=== PATIENT | female | born 1985 | race Caucasian/White ===

== ENCOUNTER 2023-03-10 10:32 | Inpatient (IN) | payer OTHER ==
[~2023-03-10] VITALS: Ht 157.5 cm; Wt 70.8 kg
[2023-03-10 10:40] VITALS: BP 138/84; PULSE 208; RESP 24; TEMP 98; O2SAT 99
[2023-03-10] MEDS ORDERED: NACL 0.9% 1,000 ML IV ONE (10:55)
[2023-03-10] MEDS ORDERED: METOPROLOL 5 MG/5 ML VIAL IVP ONE (11:10)
[2023-03-10 11:34] LABS: BASOPHILS % (AUTO) 0.1 % (0.0-2.0); EOSINOPHILS % (AUTO) 0.6 % (0.0-4.0); HEMATOCRIT 32.9 % (36-48); HEMOGLOBIN 10.8 g/dL (12.0-16.0); LYMPHOCYTES # (AUTO) 2.3 K/uL (2.5-16.5); LYMPHOCYTES % (AUTO) 26.8 % (20.5-51.1); MEAN CORPUSCULAR HEMOGLOBIN 23 pg (27-31); MEAN CORPUSCULAR HGB CONC 33 g/dL (33-37); MEAN CORPUSCULAR VOLUME 68.6 fL (80-94); MONOCYTES # (AUTO) 0.6 K/uL (0.8-1.0); MONOCYTES % (AUTO) 6.5 % (1.7-9.3); NEUTROPHILS # (AUTO) 5.6 K/uL (1.8-7.7); PLATELET COUNT (AUTO) 267 K/uL (140-450); RED BLOOD CELL COUNT(AUTO) 4.79 MIL/uL (4.20-5.40); RED CELL DISTRIBUTION WIDTH 15.3 % (11.6-13.7); WHITE BLOOD COUNT (AUTO) 8.5 K/uL (4.8-10.8)
[2023-03-10 11:48] LABS: INR 0.9 (0.8-1.2); PARTIAL THROMBOPLASTIN TIME 22.3 secs (22-35.6); PROTHROMBIN TIME 9.4 secs (10.8-13.4)
[2023-03-10 12:00] LABS: THYROID STIMULATING HORMONE < 0.01 uIU/mL (0.34-3.74)
[2023-03-10 12:07] LABS: ALBUMIN 2.9 g/dL (3.4-5.0); ANION GAP 14.2 (8-16); CALCIUM 8.4 mg/dL (8.5-10.1); CARBON DIOXIDE 22.2 mmol/L (21-32); CREATININE 0.4 mg/dL (0.6-1.3); POTASSIUM 3.4 mmol/L (3.5-5.1); TOTAL BILIRUBIN 0.4 mg/dL (0.0-1.0); TOTAL PROTEIN, SERUM 6.4 g/dL (6.4-8.2)
[2023-03-10] MEDS ORDERED: ASCO500T95 PO (14:55)
[2023-03-10] MEDS ORDERED: FERR-252 PO (14:56)
[2023-03-10] MEDS ORDERED: PREN-543 PO (14:57)
[2023-03-10] MEDS ORDERED: LORazepam 2 MG/ML VIAL IVP PRN (18:50)
[2023-03-10] MEDS ORDERED: HYDROcodone/APAP 5/325 MG 1 TAB TAB PO PRN (18:50)
[2023-03-10] MEDS ORDERED: ACETAMINOPHEN 325 MG TAB PO PRN (18:50)
[2023-03-10] MEDS ORDERED: ONDANSETRON 4 MG/2 ML VIAL IVP PRN (18:50)
[2023-03-10 19:30] VITALS: BP 126/58; PULSE 108; PULSE 114; PULSE 98; RESP 18; TEMP 97.9; O2SAT 98; O2SAT 99
[2023-03-10 20:00] VITALS: PULSE 114
[2023-03-11] VITALS: BP 125/71; PULSE 159; PULSE 161; RESP 18; TEMP 97.5; O2SAT 99
[2023-03-11] MEDS ORDERED: METOPROLOL 25 MG TAB PO ONE (00:10)
[2023-03-11 04:00] VITALS: BP 128/67; PULSE 104; PULSE 99; RESP 18; TEMP 97.1; O2SAT 99
[2023-03-11 05:54] LABS: BASOPHILS % (AUTO) 0.1 % (0.0-2.0); EOSINOPHILS % (AUTO) 0.4 % (0.0-4.0); HEMATOCRIT 29.3 % (36-48); HEMOGLOBIN 9.7 g/dL (12.0-16.0); LYMPHOCYTES # (AUTO) 1.8 K/uL (2.5-16.5); MEAN CORPUSCULAR HEMOGLOBIN 23 pg (27-31); MEAN CORPUSCULAR HGB CONC 33 g/dL (33-37); MEAN CORPUSCULAR VOLUME 68.7 fL (80-94); MONOCYTES # (AUTO) 0.4 K/uL (0.8-1.0); NEUTROPHILS # (AUTO) 6.6 K/uL (1.8-7.7); NEUTROPHILS % (AUTO) 74.5 % (42.2-75.2); PLATELET COUNT (AUTO) 225 K/uL (140-450); RED BLOOD CELL COUNT(AUTO) 4.26 MIL/uL (4.20-5.40); RED CELL DISTRIBUTION WIDTH 15.3 % (11.6-13.7); WHITE BLOOD COUNT (AUTO) 8.9 K/uL (4.8-10.8)
[2023-03-11 07:51] LABS: ANION GAP 14.1 (8-16); CALCIUM 8.5 mg/dL (8.5-10.1); CARBON DIOXIDE 22.1 mmol/L (21-32); CREATININE 0.3 mg/dL (0.6-1.3); POTASSIUM 4.2 mmol/L (3.5-5.1)
[2023-03-11 08:00] VITALS: BP 133/68; PULSE 117; PULSE 93; RESP 18; TEMP 97; O2SAT 97; O2SAT 99
[2023-03-11] MEDS ORDERED: [UNRECOGNIZED DRUG - REMARK] PO SCH (09:00)
[2023-03-11] MEDS: METOPROLOL 25 MG TAB PO SCH ×2 (09:20→21:09)
[2023-03-11] MEDS: ASCORBIC ACID 500 MG TAB PO SCH (09:21)
[2023-03-11] MEDS: FERROUS SULFATE 325 MG TABEC PO SCH (09:21)
[2023-03-11 12:00] VITALS: BP 137/71; PULSE 94; RESP 18; TEMP 97.3; O2SAT 94
[2023-03-11 16:00] VITALS: BP 131/51; PULSE 102; PULSE 104; RESP 18; TEMP 98; O2SAT 98
[2023-03-11 20:00] VITALS: BP 127/76; PULSE 110; PULSE 117; RESP 18; TEMP 98.3; O2SAT 97; O2SAT 99
[2023-03-12] VITALS: BP 121/69; PULSE 101; PULSE 95; RESP 18; TEMP 98; O2SAT 97
[2023-03-12 04:00] VITALS: BP 118/64; PULSE 90; PULSE 94; RESP 18; TEMP 97.2; O2SAT 98
[2023-03-12 06:21] LABS: BASOPHILS % (AUTO) 0.1 % (0.0-2.0); EOSINOPHILS % (AUTO) 0.6 % (0.0-4.0); HEMATOCRIT 29.1 % (36-48); HEMOGLOBIN 9.7 g/dL (12.0-16.0); LYMPHOCYTES % (AUTO) 27.1 % (20.5-51.1); MEAN CORPUSCULAR HEMOGLOBIN 23 pg (27-31); MEAN CORPUSCULAR HGB CONC 33 g/dL (33-37); MEAN CORPUSCULAR VOLUME 68.4 fL (80-94); MONOCYTES # (AUTO) 0.4 K/uL (0.8-1.0); MONOCYTES % (AUTO) 5.7 % (1.7-9.3); NEUTROPHILS # (AUTO) 4.8 K/uL (1.8-7.7); NEUTROPHILS % (AUTO) 66.5 % (42.2-75.2); PLATELET COUNT (AUTO) 230 K/uL (140-450); RED BLOOD CELL COUNT(AUTO) 4.26 MIL/uL (4.20-5.40); RED CELL DISTRIBUTION WIDTH 15.7 % (11.6-13.7); WHITE BLOOD COUNT (AUTO) 7.3 K/uL (4.8-10.8)
[2023-03-12 06:54] LABS: ANION GAP 12.9 (8-16); CALCIUM 8.2 mg/dL (8.5-10.1); CREATININE 0.3 mg/dL (0.6-1.3); POTASSIUM 3.9 mmol/L (3.5-5.1)
[2023-03-12 08:00] VITALS: BP 121/51; PULSE 106; PULSE 91; RESP 18; TEMP 98.4; O2SAT 95; O2SAT 98
[2023-03-12] MEDS ORDERED: MULTIVIT/MIN/CA/FE/FA 1 TAB PO SCH (09:00)
[2023-03-12] MEDS: ASCORBIC ACID 500 MG TAB PO SCH (09:11)
[2023-03-12] MEDS: METOPROLOL 25 MG TAB PO SCH (09:11)
[2023-03-12] MEDS: FERROUS SULFATE 325 MG TABEC PO SCH (09:12)
[2023-03-12] MEDS ORDERED: METO25TA PO (09:57)
== END 2023-03-12 11:20 | disposition home or self-care (01) | DRG 566 ==
LOC: MED 10:32 → MTU 14:47
PROVIDERS: ADMIT Preventive Medicine Preventive Medicine/Occupational Environmental Medicine; ATTEND Preventive Medicine Preventive Medicine/Occupational Environmental Medicine
DX: O99.412 Diseases of the circulatory system complicating pregnancy, second trimester (principal); E05.91 Thyrotoxicosis, unspecified with thyrotoxic crisis or storm; I47.10 Supraventricular tachycardia, unspecified; E83.51 Hypocalcemia; O99.282 Endocrine, nutritional and metabolic diseases complicating pregnancy, second trimester; O99.012 Anemia complicating pregnancy, second trimester; O21.2 Late vomiting of pregnancy; D64.9 Anemia, unspecified; Z90.49 Acquired absence of other specified parts of digestive tract; Z87.891 Personal history of nicotine dependence; Z3A.26 26 weeks gestation of pregnancy; O25.12 Malnutrition in pregnancy, second trimester
CPT/HCPCS: 36415; 71045; 76536; 76805; 80048; 80053; 83880; 84439; 84443; 84479; 84484; 85025; 85610; 85730; 87081; 93005; 96374; 99291; J3490; Q0092

== ENCOUNTER 2023-03-14 05:49 | Emergency (ER) | payer OTHER ==
[~2023-03-14] VITALS: Ht 157.5 cm; Wt 70.8 kg
[~2023-03-14 05:49] MED LIST: ASCO500T95 PO; FERR-252 PO; METO25TA PO; PREN-543 PO
[2023-03-14 05:52] VITALS: BP 134/68; PULSE 112; RESP 18; TEMP 97.6; O2SAT 97
[2023-03-14] MEDS ORDERED: NACL 0.9% 1,000 ML IV ONE (06:20)
[2023-03-14 06:57] LABS: BASOPHILS % (AUTO) 0.7 % (0.0-2.0); EOSINOPHILS % (AUTO) 0.5 % (0.0-4.0); HEMOGLOBIN 9.7 g/dL (12.0-16.0); LYMPHOCYTES # (AUTO) 1.9 K/uL (2.5-16.5); MEAN CORPUSCULAR HEMOGLOBIN 23 pg (27-31); MEAN CORPUSCULAR HGB CONC 33 g/dL (33-37); MEAN CORPUSCULAR VOLUME 68.5 fL (80-94); MONOCYTES # (AUTO) 0.5 K/uL (0.8-1.0); MONOCYTES % (AUTO) 6.9 % (1.7-9.3); NEUTROPHILS # (AUTO) 4.6 K/uL (1.8-7.7); NEUTROPHILS % (AUTO) 64.9 % (42.2-75.2); PLATELET COUNT (AUTO) 223 K/uL (140-450); RED BLOOD CELL COUNT(AUTO) 4.23 MIL/uL (4.20-5.40); RED CELL DISTRIBUTION WIDTH 15.5 % (11.6-13.7); WHITE BLOOD COUNT (AUTO) 7.2 K/uL (4.8-10.8)
[2023-03-14 07:19] LABS: ANION GAP 13.8 (8-16); CALCIUM 8.3 mg/dL (8.5-10.1); CARBON DIOXIDE 25.1 mmol/L (21-32); CHLORIDE 103 mmol/L (98-107); CREATININE 0.3 mg/dL (0.6-1.3); GFR ARICAN-AMERICAN 317 mL/min (>90); GFR NON ARICAN-AMERICAN 262 mL/min (>90); GLUCOSE 91 mg/dL (74-106); POTASSIUM 3.9 mmol/L (3.5-5.1); SODIUM SERUM 138 mmol/L (136-145); UREA NITROGEN, BLOOD 9 mg/dL (7-18)
[2023-03-14 08:06] LABS: APPEARANCE,URINE CLEAR (CLEAR); BILIRUBIN,URINE NEGATIVE (NEGATIVE); BLOOD, URINE TRACE-I (NEGATIVE); COLOR,URINE YELLOW (YELLOW); LEUKOCYTE ESTERASE ,URINE NEGATIVE (NEGATIVE); NITRITE, URINE NEGATIVE (NEGATIVE); PROTEIN,URINE NEGATIVE (NEGATIVE); UGLUCOSE NEGATIVE (NEGATIVE); UROBILINOGEN,URINE 0.2 EU/dL (0.2 - 1)
[2023-03-14 08:22] LABS: ALANINE AMINOTRANSFERASE 22 U/L (12-78); ALBUMIN 2.6 g/dL (3.4-5.0); ALKALINE PHOSPHATASE 70 U/L (50-136); ASPARTATE AMINOTRANSFERASE 13 U/L (15-37); FREE T4 (FREE THYROXINE) 7.56 ng/dL (0.76-1.46); TOTAL BILIRUBIN 0.1 mg/dL (0.0-1.0); TOTAL PROTEIN, SERUM 5.6 g/dL (6.4-8.2)
[2023-03-14 08:23] LABS: THYROID STIMULATING HORMONE < 0.01 uIU/mL (0.34-3.74)
[2023-03-14] MEDS ORDERED: METOPROLOL 25 MG TAB PO ONE (08:35)
[2023-03-14 10:21] VITALS: BP 107/45; PULSE 91; RESP 20; TEMP 98.2; O2SAT 97
== END 2023-03-14 10:21 | disposition home or self-care (01) ==
LOC: MED 05:49
DX: E05.90 Thyrotoxicosis, unspecified without thyrotoxic crisis or storm (principal); R00.0 Tachycardia, unspecified; R00.2 Palpitations; Z88.2 Allergy status to sulfonamides; Z79.899 Other long term (current) drug therapy
CPT/HCPCS: 36415; 80053; 81003; 84439; 84443; 85025; 93005; 96360; 99284; J7030

== ENCOUNTER 2023-04-01 02:33 | Observation (INO) | payer OTHER ==
[~2023-04-01] VITALS: Ht 157.5 cm; Wt 74.8 kg
[2023-04-01 02:43] VITALS: BP 128/60; PULSE 111; RESP 18; TEMP 98.4
[2023-04-01] MEDS ORDERED: LACTATED RINGERS 1,000 ML IV SCH ×2 (04:40)
== END 2023-04-01 08:40 | disposition home or self-care (01) ==
LOC: MLD 02:33
PROVIDERS: ADMIT Obstetrics & Gynecology; ATTEND Obstetrics & Gynecology
DX: O26.892 Other specified pregnancy related conditions, second trimester (principal); R10.9 Unspecified abdominal pain; Z20.822 Contact with and (suspected) exposure to COVID-19; Z3A.21 21 weeks gestation of pregnancy
CPT/HCPCS: 96360; 96361; G0378

== ENCOUNTER 2023-04-09 17:00 | Inpatient (IN) | payer OTHER ==
[~2023-04-09] VITALS: Ht 157.5 cm; Wt 73.5 kg
[2023-04-09] MEDS ORDERED: PRED1TAB2 PO (17:36)
[2023-04-09] MEDS ORDERED: AZIT250T4 PO (17:36)
[2023-04-09] MEDS ORDERED: AMPICILLIN 2,000 MG in NACL 0.9% 100 ML IV SCH (18:15)
[2023-04-09] MEDS: LACTATED RINGERS 1,000 ML IV SCH (18:49)
[2023-04-09] MEDS: AZITHROMYCIN 1,000 MG in DEXTROSE 5% 500 ML IV SCH (18:51)
[2023-04-09 19:05] VITALS: BP 134/66; PULSE 114; RESP 19; TEMP 98.4
[2023-04-09 19:08] LABS: BASOPHILS % (AUTO) 0.1 % (0.0-2.0); EOSINOPHILS % (AUTO) 0.1 % (0.0-4.0); HEMATOCRIT 29.4 % (36-48); HEMOGLOBIN 9.6 g/dL (12.0-16.0); LYMPHOCYTES # (AUTO) 1.3 K/uL (2.5-16.5); LYMPHOCYTES % (AUTO) 8.1 % (20.5-51.1); MEAN CORPUSCULAR HEMOGLOBIN 22 pg (27-31); MEAN CORPUSCULAR HGB CONC 33 g/dL (33-37); MEAN CORPUSCULAR VOLUME 68.1 fL (80-94); MONOCYTES # (AUTO) 0.7 K/uL (0.8-1.0); MONOCYTES % (AUTO) 4.3 % (1.7-9.3); NEUTROPHILS # (AUTO) 13.7 K/uL (1.8-7.7); NEUTROPHILS % (AUTO) 87.4 % (42.2-75.2); PLATELET COUNT (AUTO) 264 K/uL (140-450); RED BLOOD CELL COUNT(AUTO) 4.32 MIL/uL (4.20-5.40); RED CELL DISTRIBUTION WIDTH 15.5 % (11.6-13.7); WHITE BLOOD COUNT (AUTO) 15.6 K/uL (4.8-10.8)
[2023-04-09 19:14] LABS: APPEARANCE,URINE CLEAR (CLEAR); BILIRUBIN,URINE NEGATIVE (NEGATIVE); BLOOD, URINE TRACE-I (NEGATIVE); COLOR,URINE YELLOW (YELLOW); LEUKOCYTE ESTERASE ,URINE 1+ (NEGATIVE); NITRITE, URINE NEGATIVE (NEGATIVE); PROTEIN,URINE NEGATIVE (NEGATIVE); UGLUCOSE NEGATIVE (NEGATIVE); UROBILINOGEN,URINE 0.2 EU/dL (0.2 - 1)
[2023-04-09 19:30] LABS: BACTERIA,URINE None Seen /HPF (None Seen); SQUAMOUS EPITHELIAL CELL,UR 0-3 (FEW) /LPF (0-3 (FEW))
[2023-04-09] MEDS: MAG SULF 20 GM/H2O PREMIX DRIP 500 ML IV SCH (19:33)
[2023-04-09] MEDS ORDERED: AMPICILLIN 1,000 MG in NACL 0.9% 50 ML IV SCH (20:00)
== END 2023-04-09 21:20 | disposition short-term general hospital (02) | DRG 566 ==
LOC: MLD 17:00 → OBSVTOIN 19:00
PROVIDERS: ADMIT Obstetrics & Gynecology; ATTEND Obstetrics & Gynecology
DX: O42.912 Preterm premature rupture of membranes, unspecified as to length of time between rupture and onset of labor, second trimester (principal); O75.3 Other infection during labor; O99.282 Endocrine, nutritional and metabolic diseases complicating pregnancy, second trimester; E05.90 Thyrotoxicosis, unspecified without thyrotoxic crisis or storm; Z20.822 Contact with and (suspected) exposure to COVID-19; Z3A.21 21 weeks gestation of pregnancy
CPT/HCPCS: 36415; 76805; 81001; 85025; 87086; J0456; J3475; J7060; Q0092

== ENCOUNTER 2023-04-30 19:22 | Inpatient (IN) | payer OTHER ==
[~2023-04-30] VITALS: Ht 157.5 cm; Wt 70.8 kg
[~2023-04-30 19:22] MED LIST changes: +AZIT250T4 PO; +PRED1TAB2 PO
[2023-04-30 19:45] VITALS: BP 155/70; PULSE 135; RESP 22; TEMP 102.7; O2SAT 96
[2023-04-30] MEDS ORDERED: ACETAMINOPHEN EXTRA STRENGTH 500 MG TAB PO ONE (19:50)
[2023-04-30] MEDS ORDERED: NACL 0.9% 2,000 ML IV SCH (20:10)
[2023-04-30 20:29] LABS: BASOPHILS # (AUTO) 0.1 K/uL (0.00-0.22); BASOPHILS % (AUTO) 0.5 % (0.0-2.0); EOSINOPHILS % (AUTO) 0.1 % (0.0-4.0); HEMOGLOBIN 9.7 g/dL (12.0-16.0); LYMPHOCYTES # (AUTO) 0.6 K/uL (2.5-16.5); LYMPHOCYTES % (AUTO) 5.9 % (20.5-51.1); MEAN CORPUSCULAR HEMOGLOBIN 23 pg (27-31); MEAN CORPUSCULAR HGB CONC 33 g/dL (33-37); MEAN CORPUSCULAR VOLUME 69.7 fL (80-94); MONOCYTES # (AUTO) 0.3 K/uL (0.8-1.0); MONOCYTES % (AUTO) 3.1 % (1.7-9.3); NEUTROPHILS # (AUTO) 9.8 K/uL (1.8-7.7); NEUTROPHILS % (AUTO) 90.4 % (42.2-75.2); PLATELET COUNT (AUTO) 394 K/uL (140-450); RED BLOOD CELL COUNT(AUTO) 4.16 MIL/uL (4.20-5.40); RED CELL DISTRIBUTION WIDTH 16.5 % (11.6-13.7); WHITE BLOOD COUNT (AUTO) 10.9 K/uL (4.8-10.8)
[2023-04-30 20:54] LABS: INR 0.9 (0.8-1.2); PARTIAL THROMBOPLASTIN TIME 25.5 secs (22-35.6); PROTHROMBIN TIME 9.5 secs (10.8-13.4)
[2023-04-30 20:56] LABS: ANION GAP 15.3 (8-16); CALCIUM 9.4 mg/dL (8.5-10.1); CARBON DIOXIDE 23.7 mmol/L (21-32); CREATININE 0.5 mg/dL (0.6-1.3)
[2023-04-30] MEDS ORDERED: cefTRIAXone 1,000 MG VIAL ONE (21:03)
[2023-04-30 21:05] LABS: ALANINE AMINOTRANSFERASE 30 U/L (12-78); ALBUMIN 2.7 g/dL (3.4-5.0); ALKALINE PHOSPHATASE 127 U/L (50-136); ASPARTATE AMINOTRANSFERASE 15 U/L (15-37); BILIRUBIN,DIRECT 0.1 mg/dL (0.0-0.3); TOTAL BILIRUBIN 0.3 mg/dL (0.0-1.0); TOTAL PROTEIN, SERUM 7.2 g/dL (6.4-8.2)
[2023-04-30 21:07] LABS: LACTIC ACID 1.1 mmol/L (0.4-2.0)
[2023-04-30 21:20] LABS: APPEARANCE,URINE CLEAR (CLEAR); BILIRUBIN,URINE NEGATIVE (NEGATIVE); BLOOD, URINE TRACE-I (NEGATIVE); COLOR,URINE YELLOW (YELLOW); LEUKOCYTE ESTERASE ,URINE NEGATIVE (NEGATIVE); NITRITE, URINE NEGATIVE (NEGATIVE); PROTEIN,URINE NEGATIVE (NEGATIVE); UGLUCOSE NEGATIVE (NEGATIVE); UROBILINOGEN,URINE 0.2 EU/dL (0.2 - 1)
[2023-04-30] MEDS ORDERED: NACL 0.9% 1,000 ML IV ONE (21:35)
[2023-04-30 21:43] LABS: BACTERIA,URINE None Seen /HPF (None Seen); MUCUS,URINE 1+ /LPF (None Seen); RBC,URINE 0-5 /HPF (0-5); SQUAMOUS EPITHELIAL CELL,UR 0-3 (FEW) /LPF (0-3 (FEW)); TRICHOMONAS,URINE None Seen /HPF (None Seen); WBC,URINE 0 /HPF (0-5); YEAST,URINE None Seen /HPF (None Seen)
[2023-04-30 23:16] LABS: FLU A ANTIGEN negative (NEGATIVE); FLU B ANTIGEN negative (NEGATIVE)
[2023-04-30] MEDS ORDERED: ONDANSETRON 4 MG/2 ML VIAL ONE (23:29)
[2023-04-30] MEDS ORDERED: MORPHINE SULFATE 4 MG/ML SYR ONE (23:30)
[2023-04-30] MEDS ORDERED: MORPHINE SULFATE 4 MG/ML SYR IVP ONE (23:35)
[2023-04-30] MEDS ORDERED: ONDANSETRON 4 MG/2 ML VIAL IVP ONE (23:35)
[2023-04-30] MEDS ORDERED: ALBUTEROL SULFATE/IPRATROPIU 3 ML SOL IH ONE (23:40)
[2023-05-01] VITALS (15 sets, daily range): BP systolic 92–142; BP diastolic 44–75; PULSE 84–136; RESP 16–24; TEMP 98.4–100.5; O2SAT 92–99
[2023-05-01] LABS: AMPHETAMINE, URINE NEGATIVE ng/ml (NEG <=1000); BARBITURATE, URINE NEGATIVE ng/ml (NEG <=200); BENZODIAZEPINE, URINE NEGATIVE ng/mL (NEG <=200); CANNABINOID, URINE NEGATIVE ng/mL (NEG <=50); COCAINE, URINE NEGATIVE ng/mL (NEG <=300); OPIATE, URINE NEGATIVE ng/mL (NEG <=2000); PHENCYCLIDINE SCREEN,URINE NEGATIVE ng/mL (NEG <=25)
[2023-05-01] MEDS ORDERED: MORPHINE SULFATE 4 MG/ML SYR ONE ×2 (02:08→06:13)
[2023-05-01] MEDS ORDERED: ACETAMINOPHEN EXTRA STRENGTH 500 MG TAB ONE (02:08)
[2023-05-01] MEDS ORDERED: MORPHINE SULFATE 4 MG/ML SYR IVP ONE (02:10)
[2023-05-01] MEDS ORDERED: ACETAMINOPHEN EXTRA STRENGTH 500 MG TAB PO ONE (02:10)
[2023-05-01] MEDS ORDERED: METOPROLOL 5 MG/5 ML VIAL IVP ONE (03:50)
[2023-05-01] MEDS ORDERED: METOPROLOL 5 MG/5 ML VIAL ONE (03:52)
[2023-05-01 04:38] LABS: THYROID STIMULATING HORMONE < 0.01 uIU/mL (0.34-3.74)
[2023-05-01] MEDS ORDERED: NACL 0.45% 1,000 ML IV SCH (05:55)
[2023-05-01] MEDS ORDERED: MORPHINE SULFATE 4 MG/ML SYR IVP STA (06:12)
[2023-05-01] MEDS ORDERED: OXYC5CAP26 PO (06:25)
[2023-05-01] MEDS ORDERED: IBUP-2213 PO (06:25)
[2023-05-01] MEDS ORDERED: TAP5 PO (06:25)
[2023-05-01] MEDS ORDERED: PROPRANOLOL 20 MG TAB PO SCH (07:00)
[2023-05-01] MEDS: methIMAzole 5 MG TAB PO SCH ×4 (08:09→20:00)
[2023-05-01] MEDS: ENOXAPARIN 40 MG/0.4 ML SYR SUBQ SCH (08:13)
[2023-05-01 08:16] LABS: MAGNESIUM 1.8 mg/dL (1.8-2.4); PHOSPHORUS 4.4 mg/dL (2.5-4.9)
[2023-05-01] MEDS ORDERED: METOPROLOL 50 MG TAB PO SCH (09:00)
[2023-05-01] MEDS ORDERED: ACETAMINOPHEN 325 MG TAB PO PRN (09:00)
[2023-05-01] MEDS ORDERED: FUROSEMIDE 20 MG/2 ML VIAL IVP SCH (09:00)
[2023-05-01] MEDS ORDERED: methylPREDNISolone SS 40 MG/ML VIAL IVP SCH (09:01)
[2023-05-01] MEDS ORDERED: ALBUTEROL SULFATE/IPRATROPIU 3 ML SOL IH PRN (09:05)
[2023-05-01] MEDS: ALBUTEROL SULFATE/IPRATROPIU 3 ML SOL IH SCH ×4 (09:10→22:27)
[2023-05-01 09:55] LABS: ALBUMIN 2.6 g/dL (3.4-5.0); ANION GAP 13.8 (8-16); CALCIUM 8.7 mg/dL (8.5-10.1); CARBON DIOXIDE 25.6 mmol/L (21-32); CREATININE 0.5 mg/dL (0.6-1.3); POTASSIUM 4.4 mmol/L (3.5-5.1); TOTAL BILIRUBIN 0.3 mg/dL (0.0-1.0); TOTAL PROTEIN, SERUM 6.9 g/dL (6.4-8.2)
[2023-05-01 10:00] LABS: HEMATOCRIT 27.5 % (36-48); MEAN CORPUSCULAR HEMOGLOBIN 23 pg (27-31); MEAN CORPUSCULAR HGB CONC 33 g/dL (33-37); MEAN CORPUSCULAR VOLUME 70.7 fL (80-94); PLATELET COUNT (AUTO) 380 K/uL (140-450); RED BLOOD CELL COUNT(AUTO) 3.89 MIL/uL (4.20-5.40); RED CELL DISTRIBUTION WIDTH 16.7 % (11.6-13.7); WHITE BLOOD COUNT (AUTO) 7.5 K/uL (4.8-10.8)
[2023-05-01] MEDS: HYDROcodone/APAP 5/325 MG 1 TAB TAB PO PRN (11:36)
[2023-05-01 12:00] LABS: ANISOCYTOSIS 1+; HYPOCHROMASIA 1+; LYMPHOCYTES % (MANUAL) 5 % (20-46); MONOCYTES % (MANUAL) 4 % (5-12); POIKILOCYTOSIS 1+
[2023-05-01] MEDS: PROPRANOLOL 20 MG TAB PO SCH ×2 (12:09→17:35)
[2023-05-01] MEDS: methylPREDNISolone SS 40 MG/ML VIAL IVP SCH ×2 (12:30→21:01)
[2023-05-01] MEDS: PIPERACILLIN/TAZOBACTAM 3.375 GM in DEXTROSE 5% 50 ML IV SCH ×2 (12:31→20:59)
[2023-05-01] MEDS ORDERED: methylPREDNISolone SS 40 MG in WATER STERILE 1 ML IV SCH (13:00)
[2023-05-01] MEDS: FUROSEMIDE 20 MG/2 ML VIAL IVP SCH (20:59)
[2023-05-01] MEDS: MORPHINE SULFATE 2 MG/ML SYR IVP PRN (21:03)
[2023-05-02] VITALS (15 sets, daily range): BP systolic 110–128; BP diastolic 50–72; PULSE 78–118; RESP 18–20; TEMP 96.9–98.8; O2SAT 94–98
[2023-05-02] MEDS: PROPRANOLOL 20 MG TAB PO SCH ×4 (01:46→16:58)
[2023-05-02] MEDS: methIMAzole 5 MG TAB PO SCH ×6 (04:00→20:27)
[2023-05-02] MEDS: ALBUTEROL SULFATE/IPRATROPIU 3 ML SOL IH SCH ×6 (04:18→23:00)
[2023-05-02] MEDS: methylPREDNISolone SS 40 MG/ML VIAL IVP SCH ×3 (06:41→20:29)
[2023-05-02] MEDS: PIPERACILLIN/TAZOBACTAM 3.375 GM in DEXTROSE 5% 50 ML IV SCH ×3 (06:45→20:28)
[2023-05-02] MEDS: HYDROcodone/APAP 5/325 MG 1 TAB TAB PO PRN (06:56)
[2023-05-02 07:14] LABS: HEMATOCRIT 28.5 % (36-48); HEMOGLOBIN 9.4 g/dL (12.0-16.0); LYMPHOCYTES # (AUTO) 0.7 K/uL (2.5-16.5); LYMPHOCYTES % (AUTO) 16.7 % (20.5-51.1); MEAN CORPUSCULAR HEMOGLOBIN 23 pg (27-31); MEAN CORPUSCULAR HGB CONC 33 g/dL (33-37); MEAN CORPUSCULAR VOLUME 70.1 fL (80-94); MONOCYTES # (AUTO) 0.4 K/uL (0.8-1.0); MONOCYTES % (AUTO) 9.9 % (1.7-9.3); NEUTROPHILS # (AUTO) 3.1 K/uL (1.8-7.7); NEUTROPHILS % (AUTO) 73.4 % (42.2-75.2); PLATELET COUNT (AUTO) 419 K/uL (140-450); RED BLOOD CELL COUNT(AUTO) 4.06 MIL/uL (4.20-5.40); RED CELL DISTRIBUTION WIDTH 16.4 % (11.6-13.7); WHITE BLOOD COUNT (AUTO) 4.2 K/uL (4.8-10.8)
[2023-05-02 07:56] LABS: ALBUMIN 2.6 g/dL (3.4-5.0); ANION GAP 14.3 (8-16); CALCIUM 8.9 mg/dL (8.5-10.1); CARBON DIOXIDE 25.8 mmol/L (21-32); CREATININE 0.4 mg/dL (0.6-1.3); POTASSIUM 4.1 mmol/L (3.5-5.1); TOTAL BILIRUBIN 0.2 mg/dL (0.0-1.0)
[2023-05-02 08:21] LABS: FREE T4 (FREE THYROXINE) 2.09 ng/dL (0.76-1.46); THYROID STIMULATING HORMONE < 0.01 uIU/mL (0.34-3.74)
[2023-05-02] MEDS: FUROSEMIDE 20 MG/2 ML VIAL IVP SCH ×2 (08:22→20:29)
[2023-05-02] MEDS: ENOXAPARIN 40 MG/0.4 ML SYR SUBQ SCH (08:23)
[2023-05-02] MEDS: MORPHINE SULFATE 2 MG/ML SYR IVP PRN (21:53)
[2023-05-03] VITALS: BP 93/65; PULSE 88; RESP 18; TEMP 97.5; O2SAT 97
[2023-05-03] MEDS: methIMAzole 5 MG TAB PO SCH ×4 (00:09→12:58)
[2023-05-03 04:00] VITALS: BP 120/78; PULSE 85; RESP 18; TEMP 97.3; O2SAT 97
[2023-05-03] MEDS: ALBUTEROL SULFATE/IPRATROPIU 3 ML SOL IH SCH ×3 (04:00→11:07)
[2023-05-03] MEDS: PIPERACILLIN/TAZOBACTAM 3.375 GM in DEXTROSE 5% 50 ML IV SCH (04:10)
[2023-05-03] MEDS: methylPREDNISolone SS 40 MG/ML VIAL IVP SCH (04:19)
[2023-05-03] MEDS: PROPRANOLOL 20 MG TAB PO SCH ×3 (05:42→12:58)
[2023-05-03] MEDS: MORPHINE SULFATE 2 MG/ML SYR IVP PRN (05:44)
[2023-05-03 06:16] LABS: BASOPHILS % (AUTO) 0.2 % (0.0-2.0); HEMATOCRIT 29.1 % (36-48); HEMOGLOBIN 9.6 g/dL (12.0-16.0); LYMPHOCYTES # (AUTO) 0.9 K/uL (2.5-16.5); LYMPHOCYTES % (AUTO) 17.6 % (20.5-51.1); MEAN CORPUSCULAR HEMOGLOBIN 23 pg (27-31); MEAN CORPUSCULAR HGB CONC 33 g/dL (33-37); MEAN CORPUSCULAR VOLUME 69.6 fL (80-94); MONOCYTES # (AUTO) 0.4 K/uL (0.8-1.0); MONOCYTES % (AUTO) 8.2 % (1.7-9.3); PLATELET COUNT (AUTO) 489 K/uL (140-450); RED BLOOD CELL COUNT(AUTO) 4.19 MIL/uL (4.20-5.40); RED CELL DISTRIBUTION WIDTH 16.3 % (11.6-13.7); WHITE BLOOD COUNT (AUTO) 5.4 K/uL (4.8-10.8)
[2023-05-03 06:37] LABS: ALBUMIN 2.5 g/dL (3.4-5.0); ANION GAP 12.4 (8-16); CALCIUM 8.6 mg/dL (8.5-10.1); CARBON DIOXIDE 26.7 mmol/L (21-32); CREATININE 0.5 mg/dL (0.6-1.3); POTASSIUM 4.1 mmol/L (3.5-5.1); TOTAL BILIRUBIN 0.2 mg/dL (0.0-1.0); TOTAL PROTEIN, SERUM 6.7 g/dL (6.4-8.2)
[2023-05-03 08:00] VITALS: BP 120/65; PULSE 83; PULSE 88; RESP 18; TEMP 97.6; TEMP 97.7; O2SAT 97
[2023-05-03] MEDS: FUROSEMIDE 20 MG/2 ML VIAL IVP SCH (08:39)
[2023-05-03] MEDS: ENOXAPARIN 40 MG/0.4 ML SYR SUBQ SCH (08:43)
[2023-05-03 08:45] LABS: THYROID STIMULATING HORMONE < 0.01 uIU/mL (0.34-3.74)
[2023-05-03] MEDS ORDERED: AMOXIL/CLAVULANATE 500/125 MG 1 TAB PO SCH (09:00)
[2023-05-03] MEDS ORDERED: PANTOPRAZOLE 40 MG TABEC PO SCH (09:00)
[2023-05-03] MEDS ORDERED: METH4TAB1 PO (10:54)
[2023-05-03] MEDS ORDERED: PANT40EC PO (10:54)
[2023-05-03] MEDS ORDERED: PROP20TA29 PO (10:54)
[2023-05-03] MEDS ORDERED: AMOX-999 PO (10:55)
[2023-05-03 11:07] VITALS: PULSE 81; RESP 16; O2SAT 97
[2023-05-03 12:36] VITALS: BP 120/65; PULSE 83; RESP 18; TEMP 97.6
[2023-05-03 12:46] VITALS: BP 120/65; PULSE 83; RESP 18; TEMP 97.6
[2023-05-03] MEDS ORDERED: methylPREDNISolone SS 40 MG/ML VIAL IVP SCH (21:00)
== END 2023-05-03 13:15 | disposition home or self-care (01) | DRG 561 ==
LOC: MED 19:22 → MTU 05-01 05:35 → OBSVTOIN 05-01 05:35 → MTU 05-01 05:51 → MMU 05-02 10:05
PROVIDERS: ADMIT Family Medicine; ATTEND Family Medicine
DX: O85 Puerperal sepsis (principal); J96.00 Acute respiratory failure, unspecified whether with hypoxia or hypercapnia; E46 Unspecified protein-calorie malnutrition; I11.0 Hypertensive heart disease with heart failure; J18.9 Pneumonia, unspecified organism; I50.9 Heart failure, unspecified; O99.43 Diseases of the circulatory system complicating the puerperium; O99.285 Endocrine, nutritional and metabolic diseases complicating the puerperium; E05.90 Thyrotoxicosis, unspecified without thyrotoxic crisis or storm; O99.53 Diseases of the respiratory system complicating the puerperium; E03.9 Hypothyroidism, unspecified; Z20.822 Contact with and (suspected) exposure to COVID-19; O25.3 Malnutrition in the puerperium; Z79.899 Other long term (current) drug therapy; Z88.2 Allergy status to sulfonamides; Z88.8 Allergy status to other drugs, medicaments and biological substances; Z90.710 Acquired absence of both cervix and uterus
CPT/HCPCS: 36415; 71045; 76830; 80048; 80053; 80076; 80305; 81001; 83605; 83735; 83880; 84100; 84439; 84443; 84484; 85025; 85379; 85610; 85730; 87040; 87081; 87086; 93005; 93970; 94640; 96361; 96365; 99285; J0696; J1650; J1940; J2270; J2405; J2543; J2920; J3490; J7060

== ENCOUNTER 2023-07-23 15:34 | Inpatient (IN) | payer OTHER ==
[~2023-07-23] VITALS: Ht 160 cm; Wt 70.8 kg
[~2023-07-23 15:34] MED LIST changes: +AMOX-999 PO; -AZIT250T4 PO; +IBUP-2213 PO; +METH4TAB1 PO; -METO25TA PO; +PANT40EC PO; -PRED1TAB2 PO; +PROP20TA29 PO; +TAP5 PO
[2023-07-23 15:48] VITALS: BP 149/100; PULSE 127; RESP 22; TEMP 98.1; O2SAT 100
[2023-07-23] MEDS ORDERED: HALOPERIDOL IM 5 MG/ML VIAL ONE (16:20)
[2023-07-23] MEDS ORDERED: LORazepam 2 MG/ML VIAL ONE ×2 (16:20)
[2023-07-23] MEDS: LORazepam 2 MG/ML VIAL IM STA (16:32)
[2023-07-23] MEDS: LORazepam 2 MG/ML VIAL IM/IVP STA (16:33)
[2023-07-23] MEDS: HALOPERIDOL IM 5 MG/ML VIAL IM ONE (16:33)
[2023-07-23 17:05] LABS: BILIRUBIN,URINE NEGATIVE (NEGATIVE); BLOOD, URINE NEGATIVE (NEGATIVE); COLOR,URINE YELLOW (YELLOW); LEUKOCYTE ESTERASE ,URINE TRACE (NEGATIVE); NITRITE, URINE POSITIVE (NEGATIVE); PROTEIN,URINE NEGATIVE (NEGATIVE); UGLUCOSE NEGATIVE (NEGATIVE); UROBILINOGEN,URINE 0.2 EU/dL (0.2 - 1)
[2023-07-23 17:09] LABS: APPEARANCE,URINE HAZY (CLEAR)
[2023-07-23 17:27] LABS: BASOPHILS % (AUTO) 0.3 % (0.0-2.0); HEMATOCRIT 37.4 % (36-48); HEMOGLOBIN 12.8 g/dL (12.0-16.0); LYMPHOCYTES # (AUTO) 3.1 K/uL (2.5-16.5); LYMPHOCYTES % (AUTO) 31.6 % (20.5-51.1); MEAN CORPUSCULAR HEMOGLOBIN 24 pg (27-31); MEAN CORPUSCULAR HGB CONC 34 g/dL (33-37); MEAN CORPUSCULAR VOLUME 70.9 fL (80-94); MONOCYTES # (AUTO) 0.5 K/uL (0.8-1.0); MONOCYTES % (AUTO) 5.1 % (1.7-9.3); NEUTROPHILS # (AUTO) 6.2 K/uL (1.8-7.7); PLATELET COUNT (AUTO) 333 K/uL (140-450); RED BLOOD CELL COUNT(AUTO) 5.28 MIL/uL (4.20-5.40); WHITE BLOOD COUNT (AUTO) 9.9 K/uL (4.8-10.8)
[2023-07-23 17:46] LABS: ANION GAP 16.2 (8-16); CALCIUM 8.3 mg/dL (8.5-10.1); CARBON DIOXIDE 24.4 mmol/L (21-32); CREATININE 0.8 mg/dL (0.6-1.3)
[2023-07-23] MEDS: NACL 0.9% 1,000 ML IV ONE (17:46)
[2023-07-23 17:51] LABS: POTASSIUM 2.6 mmol/L (3.5-5.1)
[2023-07-23 18:15] LABS: ACETAMINOPHEN 5.6 ug/ml (10-30); ALANINE AMINOTRANSFERASE 19 U/L (12-78); ALBUMIN 3.8 g/dL (3.4-5.0); ALCOHOL, BLOOD < 3 mg/dL (<10); ALKALINE PHOSPHATASE 103 U/L (50-136); ASPARTATE AMINOTRANSFERASE 8 U/L (15-37); BILIRUBIN,DIRECT 0.1 mg/dL (0.0-0.3); CREATINE KINASE, TOTAL 130 U/L (26-192); FREE T4 (FREE THYROXINE) 0.37 ng/dL (0.76-1.46); SALICYLATE 3.5 mg/dL (2.8-20.0); THYROID STIMULATING HORMONE 4.01 uIU/mL (0.34-3.74); TOTAL BILIRUBIN 0.2 mg/dL (0.0-1.0); TOTAL PROTEIN, SERUM 7.3 g/dL (6.4-8.2)
[2023-07-23 18:25] LABS: AMPHETAMINE, URINE NEGATIVE ng/ml (NEG <=1000); BARBITURATE, URINE NEGATIVE ng/ml (NEG <=200); BENZODIAZEPINE, URINE NEGATIVE ng/mL (NEG <=200); CANNABINOID, URINE NEGATIVE ng/mL (NEG <=50); COCAINE, URINE NEGATIVE ng/mL (NEG <=300); OPIATE, URINE NEGATIVE ng/mL (NEG <=2000); PHENCYCLIDINE SCREEN,URINE NEGATIVE ng/mL (NEG <=25)
[2023-07-23 18:29] LABS: BACTERIA,URINE 2+ /HPF (None Seen); RBC,URINE 0 /HPF (0-5); WBC,URINE 0-5 /HPF (0-5)
[2023-07-23 18:30] LABS: MUCUS,URINE None Seen /LPF (None Seen); SQUAMOUS EPITHELIAL CELL,UR 0-3 (FEW) /LPF (0-3 (FEW))
[2023-07-23] MEDS: KCL 20 MEQ IN 100 mL PREMIX 200 ML IV ONE (19:20)
[2023-07-23] MEDS ORDERED: ACETAMINOPHEN 325 MG TAB PO PRN (19:40)
[2023-07-23] MEDS ORDERED: KCL 20 MEQ IN 100 mL PREMIX 200 ML IV PRN (19:40)
[2023-07-23] MEDS: NACL 0.9% 1,000 ML IV SCH (19:40)
[2023-07-23] MEDS ORDERED: MAGNESIUM OXIDE 400 MG TAB PO PRN (19:40)
[2023-07-23] MEDS ORDERED: ONDANSETRON 4 MG/2 ML VIAL IVP PRN (19:40)
[2023-07-23] MEDS: MAG SULF 2000 MG/WATER PREMIX 50 ML IV ONE (23:00)
[2023-07-24 06:59] LABS: ALBUMIN 3.1 g/dL (3.4-5.0); CALCIUM 7.6 mg/dL (8.5-10.1); CREATININE 0.6 mg/dL (0.6-1.3); MAGNESIUM 2.2 mg/dL (1.8-2.4); TOTAL BILIRUBIN 0.3 mg/dL (0.0-1.0); TOTAL PROTEIN, SERUM 6.7 g/dL (6.4-8.2)
[2023-07-24 07:09] LABS: ANION GAP 11.4 (8-16); CALCIUM 7.5 mg/dL (8.5-10.1); CARBON DIOXIDE 25.7 mmol/L (21-32); CREATININE 0.6 mg/dL (0.6-1.3); POTASSIUM 3.1 mmol/L (3.5-5.1)
[2023-07-24 07:12] LABS: ANION GAP 10.1 (8-16); POTASSIUM 3.1 mmol/L (3.5-5.1)
[2023-07-24] MEDS ORDERED: PROP20TA29 PO (07:25)
[2023-07-24] MEDS: POTASSIUM CHLORIDE 10 MEQ TABER PO PRN (09:39)
[2023-07-24] MEDS: ENOXAPARIN 40 MG/0.4 ML SYR SUBQ SCH (09:40)
[2023-07-24 10:00] VITALS: O2SAT 98
[2023-07-24] MEDS: LORazepam 1 MG TAB PO PRN (11:37)
[2023-07-24] MEDS: PROPRANOLOL 20 MG TAB PO SCH (17:08)
[2023-07-24] MEDS: methIMAzole 5 MG TAB PO SCH (17:21)
[2023-07-24 17:24] VITALS: BP 131/83; PULSE 107; RESP 18; TEMP 98.6; O2SAT 97
[2023-07-24 17:29] VITALS: PULSE 107; RESP 18
[2023-07-24 20:00] VITALS: PULSE 84; RESP 18; O2SAT 98
[2023-07-24] MEDS: QUEtiapine FUMARATE 25 MG TAB PO SCH (22:13)
[2023-07-25] VITALS: BP 127/78; PULSE 77; RESP 18; TEMP 98.2; O2SAT 96
[2023-07-25 06:43] LABS: ANION GAP 11.5 (8-16); CALCIUM 7.6 mg/dL (8.5-10.1); CREATININE 0.6 mg/dL (0.6-1.3); MAGNESIUM 1.9 mg/dL (1.8-2.4); POTASSIUM 3.5 mmol/L (3.5-5.1); TOTAL BILIRUBIN 0.3 mg/dL (0.0-1.0); TOTAL PROTEIN, SERUM 6.6 g/dL (6.4-8.2)
[2023-07-25 08:23] VITALS: PULSE 85; RESP 19; O2SAT 99
[2023-07-25] MEDS: HYDROcodone/APAP 5/325 MG 1 TAB TAB PO PRN (09:03)
[2023-07-25] MEDS ORDERED: ACET-8905 PO (15:15)
[2023-07-25] MEDS ORDERED: AMOX500C25 PO (15:15)
[2023-07-25] MEDS ORDERED: QUET50TA PO (15:17)
[2023-07-25 15:35] VITALS: BP 122/75; PULSE 68; RESP 20; TEMP 97.2
== END 2023-07-25 16:15 | disposition home or self-care (01) | DRG 52 ==
LOC: MED 15:34 → MMU 19:36 → MTU 07-24 16:05 → OBSVTOIN 07-25 13:48
PROVIDERS: ADMIT Internal Medicine; ATTEND Internal Medicine
DX: G92.8 Other toxic encephalopathy (principal); E05.90 Thyrotoxicosis, unspecified without thyrotoxic crisis or storm; E87.6 Hypokalemia; T43.225A Adverse effect of selective serotonin reuptake inhibitors, initial encounter; T43.215A Adverse effect of selective serotonin and norepinephrine reuptake inhibitors, initial encounter; F31.9 Bipolar disorder, unspecified; F23 Brief psychotic disorder; K00.9 Disorder of tooth development, unspecified; F15.10 Other stimulant abuse, uncomplicated; F12.10 Cannabis abuse, uncomplicated; F10.10 Alcohol abuse, uncomplicated; Y90.9 Presence of alcohol in blood, level not specified; Z79.899 Other long term (current) drug therapy; Z88.2 Allergy status to sulfonamides; Z88.8 Allergy status to other drugs, medicaments and biological substances; Y92.9 Unspecified place or not applicable
CPT/HCPCS: G0378 ×29; 36415; 70450; 71045; 80048; 80053; 80076; 80305; 81001; 81025; 82550; 83735; 84439; 84443; 84484; 85025; 87081; 87086; 93005; G0480; G0482; J1630; J1650; J2060; J3475; J3480